=== PATIENT | male | born 1960 | race Caucasian/White ===

== ENCOUNTER 2019-06-30 09:09 | Emergency (ER) | payer OTHER ==
--- NOTE | 2019-06-30 10:04 | EDM.PDOC ---
ED HPI GENERAL MEDICAL PROBLEM - General Chief Complaint: Lower Extremity Injury/Pain Stated Complaint: R FOOT INJURY Time Seen by Provider: 06/30/19 09:20 Source of Information: Reports: Patient History Limitations: Reports: No Limitations - History of Present Illness INITIAL COMMENTS - FREE TEXT/NARRATIVE: The patient presents with left great toe pain. He said a couple days ago he jammed his left great toe when getting into his truck. He is concerned he may have fractured his toe. Onset: Sudden Duration: Day(s): Location: Reports: Lower Extremity, Right (Great toe) Quality: Reports: Sharp Severity: Moderate Improves with: Reports: None Worsens with: Reports: None Associated Symptoms: Reports: No Other Symptoms Right Toe-Hailux Pain Score (Numeric/FACES): 7 - Related Data Allergies Allergy/AdvReac Type Severity Reaction Status Date / Time bee pollen Allergy Shortness Verified 06/30/19 09:22 of Breath diphenhydramine Allergy Rash Verified 06/30/19 09:22 [From Benadryl] latex Allergy Rash Verified 06/30/19 09:22 morphine Allergy Hypotension Verified 06/30/19 09:22 Home Meds: Home Meds Zolpidem Tartrate [Ambien] 10 mg PO QPM 04/10/18 [History] Hydrocodone/Acetaminophen [Hydrocodon-Acetaminophen 5-325] 1 - 2 each PO Q6HR PRN #20 tablet 06/30/19 [Rx] Lisinopril [Zestril] 20 mg PO DAILY 06/30/19 [History] Past Medical History Cardiovascular History: Reports: Hypertension Respiratory History: Reports: Other (See Below) Other Respiratory History: R colapsed lung Gastrointestinal History: Reports: Other (See Below) Other Gastrointestinal History: liver infection Psychiatric History: Reports: Other (See Below) Other Psychiatric History: insomnia Hematologic History: Reports: Other (See Below) Other Hematologic History: blood clot - Infectious Disease History Infectious Disease History: Reports: Chicken Pox - Past Surgical History HEENT Surgical History: Reports: Oral Surgery, Tonsillectomy GI Surgical History: Reports: Appendectomy, Bariatric Procedure, Cholecystectomy , Colostomy Musculoskeletal Surgical History: Reports: Knee Replacement Social & Family History - Family History Family Medical History: Noncontributory - Tobacco Use Smoking Status *Q: Never Smoker Second Hand Smoke Exposure: No - Caffeine Use Caffeine Use: Reports: None - Alcohol Use Days Per Week of Alcohol Use: 5 Number of Drinks Per Day: 1 Total Drinks Per Week: 5 - Recreational Drug Use Recreational Drug Use: No Review of Systems - Review of Systems Review Of Systems: See Below Constitutional: Reports: No Symptoms Eyes: Reports: No Symptoms Ears: Reports: No Symptoms Nose: Reports: No Symptoms Mouth/Throat: Reports: No Symptoms Respiratory: Reports: No Symptoms Cardiovascular: Reports: No Symptoms GI/Abdominal: Reports: No Symptoms Genitourinary: Reports: No Symptoms Musculoskeletal: Reports: Other (Right great toe pain and right foot pain) ED EXAM, GENERAL - Physical Exam Exam: See Below Exam Limited By: No Limitations General Appearance: Alert, No Apparent Distress Ears: Normal External Exam Nose: Normal Inspection Head: Atraumatic, Normocephalic Neck: Normal Inspection Respiratory/Chest: No Respiratory Distress Extremities: Other (Pain upon palpation to the base of the great toe and foot. Good sensation) Course - Vital Signs Last Recorded V/S: Last Vital Signs Temp 98.7 F 06/30/19 09:17 Pulse 101 H 06/30/19 09:17 Resp 19 06/30/19 09:17 BP 160/110 H 06/30/19 09:17 Pulse Ox 97 06/30/19 09:17 - Orders/Labs/Meds Orders: Active Orders 24 hr Category Date Time Status Foot Comp Min 3V Lt [CR] Stat Exams 06/30/19 09:22 Taken - Re-Assessments/Exams Free Text/Narrative Re-Assessment/Exam: 06/30/19 10:02 His x-ray looks good. I will discharge him home. Departure - Departure Time of Disposition: 10:05 Disposition: Home, Self-Care 01 Condition: Good Clinical Impression: Sprain of left great toe Qualifiers: Encounter type: initial encounter Qualified Code(s): S93.502A - Unspecified sprain of left great toe, initial encounter - Discharge Information *PRESCRIPTION DRUG MONITORING PROGRAM REVIEWED*: No *COPY OF PRESCRIPTION DRUG MONITORING REPORT IN PATIENT YADIEL: No Prescriptions: Hydrocodone/Acetaminophen [Hydrocodon-Acetaminophen 5-325] 1 - 2 each PO Q6HR PRN #20 tablet PRN Reason: Pain Referrals: Tc Benedict Jr, MD [Primary Care Provider] - 1 Week Additional Instructions: Take motrin or aleve for pain. If that does not help, try the hydrocodone. Please return if you are worse. Sepsis Event Note - Evaluation Sepsis Screening Result: No Definite Risk - Focused Exam Vital Signs: Vital Signs Temp Pulse Resp BP Pulse Ox 06/30/19 09:17 98.7 F 101 H 19 160/110 H 97 Date Exam was Performed: 06/30/19 Time Exam was Performed: 09:58 - My Orders Last 24 Hours: My Active Orders 06/30/19 09:22 Foot Comp Min 3V Lt [CR] Stat - Assessment/Plan Last 24 Hours: My Active Orders 06/30/19 09:22 Foot Comp Min 3V Lt [CR] Stat
--- NOTE | 2019-06-30 10:21 | CR ---
Left foot: Four views of the left foot were obtained. Comparison: No previous foot study. Plantar spur is noted. Spur also noted at the attachment of the Achilles tendon to the calcaneus. No acute fracture is seen. No dislocation is noted. Impression: 1. Findings as noted above. 2. Nothing acute is appreciated within left first toe. Diagnostic code #2 This report was dictated in [place] Standard Time
== END 2019-06-30 10:21 | disposition home or self-care (01) ==
LOC: JD.ED 09:09
DX: S93.502A Unspecified sprain of left great toe, initial encounter (principal); I10 Essential (primary) hypertension; G47.00 Insomnia, unspecified; Z88.5 Allergy status to narcotic agent; Z88.8 Allergy status to other drugs, medicaments and biological substances; Z91.030 Bee allergy status; Z91.040 Latex allergy status; Z79.899 Other long term (current) drug therapy; W23.0XXA Caught, crushed, jammed, or pinched between moving objects, initial encounter; Y93.89 Activity, other specified
CPT/HCPCS: 73630-26-LT; 73630-LT; 99283; 99283-25

== ENCOUNTER 2023-08-31 11:38 | Emergency (ER) | payer OTHER ==
[2023-08-31] MEDS: Sodium Chloride 0.9% 10 ML Syringe FLUSH PRN (12:29)
[2023-08-31 12:55] LABS: C-REACTIVE PROTEIN 6.22 mg/dL (<0.30); MAGNESIUM 1.8 mg/dL (1.8-2.4)
[2023-08-31] MEDS: Ibuprofen 800 MG Tab PO ONE (13:16)
[2023-08-31] MEDS: Iopamidol 612 MG/ML 100 ML Bottle IVPUSH ONE (13:53)
[2023-08-31 14:35] LABS: APPEARANCE,URINE CLOUDY (Clear); BILIRUBIN,URINE NEGATIVE (Negative); COLOR,URINE YELLOW (Yellow); GLUCOSE,URINE NEGATIVE (Negative); KETONES,URINE NEGATIVE (Negative); LEUKOCYTE ESTERASE,URINE 2+ (Negative); NITRITE,URINE POSITIVE (Negative); OCCULT BLOOD,URINE 2+ (Negative); PROTEIN,URINE 2+ (Negative)
[2023-08-31 14:39] LABS: RBC,URINE 50-75 /hpf (0-5)
[2023-08-31 14:40] LABS: BACTERIA,URINE MODERATE /hpf (FEW); MUCUS,URINE MODERATE /hpf (FEW); WBC,URINE 50-75 /hpf (0-5)
[2023-08-31] MEDS: cefTRIAXone 2 GM in Sodium Chloride 0.9% 100 ML IV ONE (15:03)
== END 2023-08-31 15:28 | disposition home or self-care (01) ==
LOC: JD.ED 11:38
DX: S37.092A Other injury of left kidney, initial encounter (principal); I10 Essential (primary) hypertension; Z88.5 Allergy status to narcotic agent; Z91.040 Latex allergy status; Z88.8 Allergy status to other drugs, medicaments and biological substances; Z91.030 Bee allergy status; Z79.899 Other long term (current) drug therapy; Z90.49 Acquired absence of other specified parts of digestive tract; X58.XXXA Exposure to other specified factors, initial encounter
CPT/HCPCS: 36415; 74177; 74177-26; 81001; 83735; 84153; 86140; 96374; 99284; 99284-25; A9270-GY; J0696; J3490; Q9967